=== PATIENT | male | born 1950 ===

== ENCOUNTER 2020-10-27 20:10 | Emergency (ER) | payer SELFPAY ==
[~2020-10-27] VITALS: Ht 182.9 cm; Wt 100.0 kg
[~2020-10-27 20:10] MED LIST: CODE BLUE RESPONSE XX ONE; EPINEPHRINE SYRINGE 0.1 MG/ML, 10ML ONE
--- NOTE | 2020-10-27 20:10 | NUR ---
REF TO CODE SHEET.
[2020-10-27 20:19] VITALS: BP 0/0
--- NOTE | 2020-10-27 20:20 | NUR ---
CODE BLUE PG @2004
--- NOTE | 2020-10-27 20:20 | NUR ---
CALL AT 1933. CPR ON SCENE. FROM [place] HERE ON VACATION. HX DM, CHF, STROKE. IMPLANTED DEFIB DEVICE. IO R LEG. EPI X3 BY EMSE. ETT @25. LAST EPI 1957. EPI AT 2011. TIME OF 2015. ZAFAR ROLLINS.
--- NOTE | 2020-10-27 21:05 | NUR ---
CONTACTED [employer]WORK, , PT IS NOT A CANIDATE.
--- NOTE | 2020-10-27 21:15 | NUR ---
, SANDRA HAMILTON, TO T1 WITH FRIEND WHILE [employer] AT BS. GIVEN PTS WALLET & WATCH
--- NOTE | 2020-10-27 21:19 | NUR ---
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
--- NOTE | 2020-10-27 21:55 | NUR ---
TRIPPER SPOKE C PT, MOST LIKELY NOT A CANIDATE FOR FOR AN AUTOPSY. , PER APOLINAR Gallegos
--- NOTE | 2020-10-27 21:57 | NUR ---
PT GIVEN NURSING OPERATIONS NUMBER & LIST OF HOMES. AWARE OF NEED TO CALL WHEN ARRAGEMENTS HAVE BEEN DECIDED. FRIENDS AT , VERBALIZES THIS INFORMATION.
--- NOTE | 2020-10-27 22:29 | NUR ---
PT READY FOR TRANSPORT TO [facility] [place].
== END 2020-10-27 23:00 | disposition home or self-care (01) ==
LOC: EDSEX 20:10 → EDBD 20:10 → ED 21:10
DX: I46.9 Cardiac arrest, cause unspecified (principal); I45.89 Other specified conduction disorders; E11.9 Type 2 diabetes mellitus without complications
CPT/HCPCS: 92950; 99285